=== PATIENT | female | born 1995 ===

== ENCOUNTER → 2025-05-21 | Outpatient (CLI) | payer OTHER ==
[2025-05-21 10:44] LABS: Source, Urine Clean Catch
[2025-05-21 13:57] LABS: Red Blood Cells, Urine 0-2 /hpf (0-2); White Blood Cells, Urine 0-2 /hpf (0-5)
== END | disposition home or self-care (01) ==
LOC: LAB 10:41 → LAB SHORT 10:41
PROVIDERS: Obstetrics & Gynecology
DX: Z34.01 Encounter for supervision of normal first pregnancy, first trimester (principal); Z3A.00 Weeks of gestation of pregnancy not specified
CPT/HCPCS: 81015; 87086